=== PATIENT | female | born 1995 | race Caucasian/White ===

== ENCOUNTER 2017-05-07 10:41 | Emergency (ER) | payer OTHER ==
[2017-05-07] MEDS ORDERED: KETOROLAC 30 MG/ML VIAL IM ONE (11:11)
[2017-05-07] MEDS ORDERED: ORPHENADRINE CITRATE 60MG/2ML VIAL IM ONE (11:11)
--- NOTE | 2017-05-07 11:21 | Emergency Department Record ---
History of Present Illness - General Chief Complaint: Back Pain/Injury Stated Complaint: BACK PAIN Time Seen by Provider: 05/07/17 10:55 Source: Patient Mode of Arrival: Ambulatory Limitations: No limitations - History of Present Illness Initial Comments: The patient is here due to a 2 week hx of low back pain. The pain is sharp and stabbing and is worse with any movement or twisting and is much better with rest and lying. The pain intermittently radiates to the L buttock area but does not travel down the legs. There is no leg numbness, weakness, or any bowel or bladder issues. The patient had chronic back pain and has had surgery in the past for similar issues by Dr. Whitley. She denies any CP, fever, chills, and has had a normal LMP. MD Complaint: Back pain Onset/Timin -: Week(s) Similar Symptoms Previously: Yes Radiation: None Severity scale (1-10): 7 Quality: Aching Consistency: Constant Improves With: Other Worsens With: Movement, Sitting upright Context: Unknown Associated Symptoms: Difficulty walking - Related Data Home Medications Medication Instructions Recorded Confirmed Last Taken Norgestimate-Ethinyl Estradiol 1 each PO DAILY 05/07/17 05/07/17 05/06/17 [Norg-Ee 0.18-0.215-0.25/0.025] Sertraline HCl [Zoloft] 100 mg PO DAILY 05/07/17 05/07/17 05/06/17 Previous Rx's Medication Instructions Recorded Cyclobenzaprine HCl [Flexeril] 10 mg PO TID PRN #20 tablet 05/07/17 Naproxen [Naprosyn] 500 mg PO BID #14 tablet. 05/07/17 Allergies Allergy/AdvReac Type Severity Reaction Status Date / Time No Known Drug Allergies Allergy Verified 05/07/17 10:52 Travel Screening - Travel/Exposure Within Last 30 Days Have you traveled within the last 30 days?: No - Travel/Exposure Within Last Year Have you traveled outside the [place] in the last year?: No - Additonal Travel Details Have you been exposed to anyone with a communicable illness?: No - Travel Symptoms Symptom Screening: None Review of Systems Constitutional: Denies: Chills, Fever Eyes: Denies: Eye discharge ENT: Denies: Congestion Respiratory: Denies: Cough, Dyspnea Past Medical History - SOCIAL HISTORY Smoking Status: Never smoker Alcohol Use: Rare Drug Use: None - RESPIRATORY Hx Respiratory Disorders: No - CARDIOVASCULAR Hx Cardio Disorders: No - NEURO Hx Neuro Disorders: No - GI Hx GI Disorders: Yes Hx Reflux: Yes (occassional) - Hx Genitourinary Disorders: No - ENDOCRINE Hx Endocrine Disorders: No - MUSCULOSKELETAL Hx Musculoskeletal Disorders: Yes - PSYCH Hx Psych Problems: Yes Hx Anxiety: Yes - HEMATOLOGY/ONCOLOGY Hx Hematology/Oncology Disorders: No Family Medical History Any Significant Family History?: No Hx Cancer: Grandparents Hx Diabetes: Grandparents Hx Heart Disease: Grandparents Physical Exam - General General Appearance: Alert, Oriented x3, Cooperative, No acute distress - Head Head exam: Atraumatic, Normocephalic, Normal inspection - Eye Eye exam: Normal appearance, PERRL - Neck Neck exam: Normal inspection, Full ROM. negative: Tenderness - Respiratory Respiratory exam: Normal lung sounds bilaterally. negative: Respiratory distress - Cardiovascular Cardiovascular Exam: Regular rate, Normal rhythm, Normal heart sounds - GI/Abdominal GI/Abdominal exam: Soft, Normal bowel sounds. negative: Tenderness - Extremities Extremities exam: Normal inspection, Full ROM, Normal capillary refill, Other ( Neg SLR bilaterally.). negative: Tenderness - Back Back exam: Reports: Normal inspection, Paraspinal tenderness (There is L5-S1 paraspinal lumbar tenderness.). Denies: Vertebral tenderness Course Vital Signs 05/07/17 10:44 Temperature 98.4 F Pulse Rate 97 H Respiratory 18 Rate Blood Pressure 130/89 Pulse Ox 98 - Reevaluation(s) Reevaluation #1: The patient is doing better at this time. Her pain is resolving and she is resting comfortably. 05/07/17 11:52 Reevaluation #2: The patient is doing a good bit better and would like to go home. I did discuss the issues with her and the need for F/U. 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 Rest for 2 days with no lifting or bending and return to the ER for any worsening pain, leg numbness, weakness or any bowel or bladder issues. Prescriptions: Cyclobenzaprine HCl [Flexeril] 10 mg PO TID PRN #20 tablet PRN Reason: Pain Naproxen [Naprosyn] 500 mg PO BID #14 tablet.dr Forms: Patient Portal Access Time of Disposition: 12:06 Quality - Quality Measures Quality Measures: N/A - Blood Pressure Screening View Details: Yes Does Patient Have Any of the Following: No Blood Pressure Classification: Pre-Hypertensive BP Reading Systolic Measurement: 115 Diastolic Measurement: 86 Screening for High Blood Pressure: < Pre-Hypertensive BP, F/U Documented > [ G8950] Pre-Hypertensive Follow-up Interventions: Referral to alternative/primary care provider.
== END 2017-05-07 12:13 | disposition home or self-care (01) ==
LOC: ER 10:41
DX: M54.5 Low back pain (principal)
CPT/HCPCS: 99283 ×2; 96372; J1885; J2360

== ENCOUNTER 2018-05-13 20:05 | Emergency (ER) | payer OTHER ==
--- NOTE | 2018-05-13 21:29 | Emergency Department Record ---
History of Present Illness - General Chief Complaint: Fall Injury Stated Complaint: FALL/VISUAL DISTURBANCE Time Seen by Provider: 05/13/18 20:26 Source: Patient Mode of Arrival: Ambulatory Limitations: No limitations - History of Present Illness Initial Comments: 23 yo female presents after a fall on ice on Sunday. She slipped back hitting her head. She initially felt dazed, some nausea and has had a persistent headache. Today she was ready at school around noon and noted her lateral left eye vision seem blurry for 40 minutes then resolved. Her vision has been back at baseline since then. No confusion, no memory loss. No other weakness, numbness, tingling or neurologic or visual symptoms. She wears glasses. She has no symptoms at this time. 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 Fall Witnessed: Yes, by family Place Fall Occurred: Home Loss of Consciousness: None Prolonged Down Time?: No Symptoms Prior to Fall: None Location: Head, Neck, Buttocks Severity: Mild Severity scale (1-10): 2 Context: Tripped/slipped Associated Symptoms: Denies - [place] Coma Scale Eye Response: (4) Open spontaneously Motor Response: (6) Obeys commands Verbal Response: (5) Oriented [place] Total: 15 - Related Data Allergies Allergy/AdvReac Type Severity Reaction Status Date / Time No Known Drug Allergies Allergy Verified 05/13/18 21:01 Travel Screening - Travel/Exposure Within Last 30 Days Have you traveled within the last 30 days?: No - Travel/Exposure Within Last Year Have you traveled outside the [place] in the last year?: No - Additonal Travel Details Have you been exposed to anyone with a communicable illness?: No - Travel Symptoms Symptom Screening: None Review of Systems Constitutional: Denies: Chills, Fever, Malaise, Weakness Eyes: Reports: As per HPI, Vision change (resolved since about 12:40). Denies: Eye discharge, Eye pain, Photophobia ENT: Denies: Congestion, Throat pain Respiratory: Denies: Cough, Dyspnea Cardiovascular: Denies: Chest pain, Palpitations, Syncope Endocrine: Denies: Fatigue, Polydipsia, Polyuria Gastrointestinal: Denies: Abdominal pain, Diarrhea, Nausea, Vomiting Genitourinary: Denies: Dysuria, Urgency Musculoskeletal: Denies: Arthralgia, Back pain, Joint swelling, Myalgia Skin: Denies: Bruising, Change in color, Rash Neurological: Reports: Headache. Denies: Abnormal gait, Confusion, Numbness, Paresthesias, Seizure, Tingling, Tremors, Vertigo, Weakness Psychiatric: Denies: Anxiety Hematological/Lymphatic: Denies: Easy bleeding, Easy bruising, Swollen glands Past Medical History - SOCIAL HISTORY Smoking Status: Never smoker Alcohol Use: Rare Drug Use: None - RESPIRATORY Hx Respiratory Disorders: No - CARDIOVASCULAR Hx Cardio Disorders: No - NEURO Hx Neuro Disorders: No - GI Hx GI Disorders: Yes Hx Reflux: Yes (occassional) - Hx Genitourinary Disorders: No - ENDOCRINE Hx Endocrine Disorders: No - MUSCULOSKELETAL Hx Musculoskeletal Disorders: Yes - PSYCH Hx Psych Problems: Yes Hx Anxiety: Yes - HEMATOLOGY/ONCOLOGY Hx Hematology/Oncology Disorders: No Family Medical History Any Significant Family History?: No Hx Cancer: Grandparents Hx Diabetes: Grandparents Hx Heart Disease: Grandparents Physical Exam - General General Appearance: Alert, Oriented x3, Cooperative, No acute distress Limitations: No limitations - Head Head exam: Atraumatic, Normocephalic, Normal inspection Head exam detail: negative: Abrasion, Contusion, Hematoma - Eye Eye exam: Normal appearance, PERRL, EOMI, Other (Fundi appear normal without obvious hemorrhage, retinal abnormality, the disc is shape on the left). negative: Conjunctival injection, Nystagmus, Periorbital swelling, Periorbital tenderness, Scleral icterus Pupils: Normal accommodation, Other (Normal visual confrontation testing with counting and movement in all quadrants, no diplopia, no quadrant visual defect) . negative: Irregular, Miosis, Unequal Visual acuity (L) = 20/: 30 Visual acuity (R) = 20/: 30 With correction: Yes - ENT ENT exam: Normal exam, Mucous membranes moist Ear exam: Normal external inspection Nasal Exam: Normal inspection Mouth exam: Normal external inspection - Neck Neck exam: Normal inspection - Respiratory Respiratory exam: Normal lung sounds bilaterally. negative: Respiratory distress - Cardiovascular Cardiovascular Exam: Regular rate, Normal rhythm, Normal heart sounds - GI/Abdominal GI/Abdominal exam: Soft. negative: Tenderness - Rectal Rectal exam: Deferred - exam: Deferred - Extremities Extremities exam: Normal inspection. negative: Full ROM, Joint swelling, Normal capillary refill, Pedal edema, Tenderness - Back Back exam: Reports: Full ROM. Denies: CVA tenderness (R), CVA tenderness (L), Tenderness - Neurological Neurological exam: Alert, CN II-XII intact, Normal gait, Oriented X3, Reflexes normal. negative: Abnormal gait, Altered, Motor sensory deficit - Psychiatric Psychiatric exam: negative: Agitated, Anxious, Normal affect, Normal mood - Skin Skin exam: Dry, Intact, Normal color, Warm Course Vital Signs 05/13/18 20:49 Temperature 98.4 F Pulse Rate [ 82 Pulse Ox Probe] Respiratory 20 Rate Blood Pressure 150/96 [Left Arm] Pulse Ox 100 - Reevaluation(s) Reevaluation #1: Given the transient vision change and mild persistent headache HCT was ordered 05/13/18 21:29 05/13/18 21:51 The HCT is negative Her examination is negative at this time We discussed reasons for return, follow up with her eye doctor the next available appointment Disposition Disposition: Discharge Clinical Impression: Concussion, Transient vision disturbance of left eye Disposition: Home, Self-Care Condition: (1) Good Instructions: Concussion (ED) Additional Instructions: Call your eye doctor for the next available follow up appointment tomorrow Return to the ER for a recheck if worse, any new concerns or questions Review this ER visit and the tests performed with your family doctor Forms: Patient Portal Access Time of Disposition: 21:52 Quality - Quality Measures Quality Measures: N/A, Blunt Head Trauma (>2yr) - [place] Coma Scale Eye Response: (4) Open spontaneously Motor Response: (6) Obeys commands Verbal Response: (5) Oriented [place] Total: 15 - Blunt Head Trauma - Adult Quality Measure: Measure #415: Utilization of CT for Minor Blunt Head Trauma ICD10 Codes Entered: Yes Was CT ordered: Yes Does Patient Have Any of the Following: No Exclusions Patient Presented Within 24 Hours of Injury: No [place] Score: [address] for Minor Blunt Head Trauma: Not Eligible For Measure Additional Inclusion Criteria: More than 24hrs (OR) GCS not 15 (OR) CT not ordered. Not Eligible Reason: Injury Greater Than 24 Hours Ago - Blood Pressure Screening Does Patient Have Any of the Following: No Blood Pressure Classification: Pre-Hypertensive BP Reading Systolic Measurement: 128 Diastolic Measurement: 78 Screening for High Blood Pressure: < Pre-Hypertensive BP, F/U Documented > [ G8950] Pre-Hypertensive Follow-up Interventions: Referral to alternative/primary care provider.
--- NOTE | 2018-05-15 13:21 | CT SCAN REPORT ---
EXAM: CT OF THE HEAD WITHOUT CONTRAST HISTORY: BLURRED VISION IN LEFT EYE LASTING FORTY-FIVE MINUTES TWO DAYS POST HEAD TRAUMA. TECHNIQUE: Routine noncontrast CT examination of the head was obtained. Comparison: CT of the head without contrast dated 10/15/14. FINDINGS: The ventricles and subarachnoid spaces remain normal in size. No area of abnormally increased or decreased attenuation is noted throughout the brain substance. No abnormal extraaxial fluid collection is seen nor is there skull fracture identified. There is mild mucosal thickening in the maxillary sinuses, several bilateral ethmoid air cells, and the left sphenoid sinus. The visualized paranasal sinuses and mastoid air cells are otherwise clear. The orbits as visualized are within the limits of normal. 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 IMPRESSION: 1. NO ACUTE INTRACRANIAL ABNORMALITY NOR SKULL FRACTURE IDENTIFIED WITHOUT CHANGE IN APPEARANCE OF THE BRAIN SINCE 10/15/14. 2. MILD MUCOSAL THICKENING WITHIN SEVERAL PARANASAL SINUSES. 3. NOT MENTIONED ABOVE IS APPARENT MILD SOFT TISSUE SWELLING IN THE POSTERIOR PARIETAL SCALP NEAR THE MIDLINE. JOB NUMBER: [id number] [facility]
== END 2018-05-13 22:11 | disposition home or self-care (01) ==
LOC: ER 20:05
DX: S06.0X0A Concussion without loss of consciousness, initial encounter (principal); H53.8 Other visual disturbances; R11.0 Nausea; R51 Headache; W00.0XXA Fall on same level due to ice and snow, initial encounter; Y92.009 Unspecified place in unspecified non-institutional (private) residence as the place of occurrence of the external cause
CPT/HCPCS: 70450; 99283

== ENCOUNTER 2018-09-11 19:30 | Emergency (ER) | payer OTHER ==
[2018-09-11] MEDS ORDERED: MAGNESIUM HYDROXIDE/AL HYDROX 30 ML, LIDOCAINE VISC 2% 15ML 15 ML PO ONE ×2 (19:49)
--- NOTE | 2018-09-11 19:53 | Emergency Department Record ---
History of Present Illness - General Chief Complaint: Abdominal Pain Stated Complaint: ABDOMINAL PAIN Time Seen by Provider: 09/11/18 19:43 Source: Patient Mode of Arrival: Ambulatory Limitations: No limitations - History of Present Illness Initial Comments: 23 yo female presents to ED for evaluation of epigastric abdominal pain that began approximately 6 days ago. Patient denies nausea/vomiting, does report some loose stools however. Patient denies health problems at her baseline, denies previous abdominal surgery. Patient has not taken anything for her symptoms prior to arrival. MD Complaint: Abdominal pain Onset/Timin -: Days(s) Location: Epigastric Radiation: None Migration to: No migration Severity: Moderate Quality: Aching Consistency: Constant Improves With: Nothing Worsens With: Nothing Associated Symptoms: Diarrhea - Related Data Previous Rx's Medication Instructions Recorded Famotidine [Pepcid] 40 mg PO DAILY #30 tablet 09/11/18 Sucralfate [Carafate] 1 g PO QID #60 udc 09/11/18 Allergies Allergy/AdvReac Type Severity Reaction Status Date / Time No Known Drug Allergies Allergy Verified 05/13/18 21:01 Review of Systems Constitutional: Denies: Chills, Fever, Malaise, Night sweats Eyes: Denies: Eye discharge, Eye pain ENT: Denies: Congestion, Ear pain, Epistaxis Respiratory: Denies: Cough, Dyspnea Cardiovascular: Denies: Chest pain, Dyspnea on exertion Endocrine: Denies: Fatigue, Heat or cold intolerance Gastrointestinal: Reports: Abdominal pain. Denies: Nausea, Vomiting Genitourinary: Denies: Incontinence, Retention Musculoskeletal: Denies: Arthralgia, Back pain Skin: Denies: Bruising, Change in color Neurological: Denies: Abnormal gait, Confusion, Headache, Seizure Psychiatric: Denies: Anxiety Hematological/Lymphatic: Denies: Anemia, Blood Clots Past Medical History - SOCIAL HISTORY Smoking Status: Never smoker Drug Use: None - RESPIRATORY Hx Respiratory Disorders: No - CARDIOVASCULAR Hx Cardio Disorders: No - NEURO Hx Neuro Disorders: No - GI Hx GI Disorders: Yes Hx Reflux: Yes (occassional) - Hx Genitourinary Disorders: No - ENDOCRINE Hx Endocrine Disorders: No - MUSCULOSKELETAL Hx Musculoskeletal Disorders: Yes - PSYCH Hx Psych Problems: Yes Hx Anxiety: Yes - HEMATOLOGY/ONCOLOGY Hx Hematology/Oncology Disorders: No Family Medical History Hx Cancer: Grandparents Hx Diabetes: Grandparents Hx Heart Disease: Grandparents Physical Exam - General General Appearance: Alert, Oriented x3, Cooperative, Mild distress Limitations: No limitations - Head Head exam: Atraumatic, Normocephalic, Normal inspection Head exam detail: negative: Abrasion, Contusion, Sue's sign, General tenderness, Hematoma, Laceration - Eye Eye exam: Normal appearance. negative: Conjunctival injection, Periorbital swelling, Periorbital tenderness, Scleral icterus - ENT Ear exam: negative: Auricular hematoma, Auricular trauma Nasal Exam: negative: Active bleeding, Discharge, Dried blood, Foreign body Mouth exam: negative: Drooling, Laceration, Muffled voice, Tongue elevation - Neck Neck exam: Normal inspection. negative: Meningismus, Tenderness - Respiratory Respiratory exam: Normal lung sounds bilaterally. negative: Rales, Respiratory distress, Rhonchi, Stridor - Cardiovascular Cardiovascular Exam: Regular rate, Normal rhythm, Normal heart sounds - GI/Abdominal GI/Abdominal exam: Soft, Tenderness (Mild TTP epigastric region on examination, no rebound/guarding present, no pain to the lower quadrants on examination.). negative: Rebound, Rigid - Rectal Rectal exam: Deferred - exam: Deferred - Extremities Extremities exam: Normal inspection. negative: Pedal edema, Tenderness - Back Back exam: Denies: CVA tenderness (R), CVA tenderness (L) - Neurological Neurological exam: Alert, Normal gait, Oriented X3 - Psychiatric Psychiatric exam: Normal affect, Normal mood - Skin Skin exam: Normal color. negative: Abrasion Type of lesion: negative: abrasion Course Vital Signs 09/11/18 19:45 Temperature 98.3 F Pulse Rate [ 93 H Pulse Ox Probe] Respiratory 20 Rate Blood Pressure 123/83 [Left Arm] Pulse Ox 97 - Reevaluation(s) Reevaluation #1: 09/11/18 20:41 Laboratory studies were reviewed and are grossly unremarkable for an acute process. UA pending at this time. Reevaluation #2: 09/11/18 20:56 Patient was reassessed at this time, reports that she is feeling better. UA sent to lab. Reevaluation #3: 09/11/18 21:02 UA reviewed and appears unremarkable. Patient was updated on all results, discussed bringing the patient back for US in the morning, patient declined stating she will follow-up with her PCP to have the examination ordered. Patient was instructed to return to the ED if her symptoms worsen or if you have any concerns. Will treat for possible gastritis/PUD. Medical Decision Making - Lab Data Result diagrams: 09/11/18 20:11 09/11/18 20:10 Disposition Disposition: Discharge Clinical Impression: Gastritis Qualifiers: Gastritis type: unspecified gastritis Chronicity: acute Gastritis bleeding: without bleeding Qualified Code(s): K29.00 - Acute gastritis without bleeding Disposition: Home, Self-Care Condition: (2) Stable Instructions: Gastritis (ED) Additional Instructions: Return to ED if your symptoms worsen or if you have any concerns. Pepcid, Carafate as directed. Follow-up with your family doctor in 3-5 days as directed. Prescriptions: Sucralfate [Carafate] 1 g PO QID #60 udc Famotidine [Pepcid] 40 mg PO DAILY #30 tablet Forms: Patient Portal Access Time of Disposition: 21:06 Quality - Quality Measures Quality Measures: N/A - Blood Pressure Screening Does Patient Have Any of the Following: No Blood Pressure Classification: Pre-Hypertensive BP Reading Systolic Measurement: 123 Diastolic Measurement: 75 Screening for High Blood Pressure: < Pre-Hypertensive BP, F/U Documented > [G8950] Pre-Hypertensive Follow-up Interventions: Referral to alternative/primary care provider.
[2018-09-11] MEDS ORDERED: 0.9 % SODIUM CHLORIDE 1000ML 1,000 ML IV SCH (20:00)
[2018-09-11 20:18] LABS: ABSOLUTE NEUTROPHIL COUNT 5.16; BASO % 0.5 % (0-6); EOS % 2.9 % (0-6); GRAN % 60.6 % (47-80); HEMATOCRIT 37.8 % (35.0-47.0); HEMOGLOBIN 13.1 gm/dl (11.6-16.0); LYMPH % 30.9 % (16-45); MEAN CELL VOLUME 94.3 fl (81-97); MEAN CORPUSCULAR HEMOGLOBIN 32.7 pg (27-33); MEAN CORPUSCULAR HGB CONC 34.7 g/dl (32-36); MEAN PLATELET VOLUME 9.9 fl (7.4-10.4); MONO % 5.1 % (0-9); PLATELET COUNT 280 K/uL (130-400); RED BLOOD COUNT 4.01 M/uL (3.80-5.40); RED CELL DISTRIBUTION WIDTH 12.4 % (11.5-14.5); WHITE BLOOD COUNT W/O DIFF 8.5 K/uL (4.2-12.2)
[2018-09-11 20:26] LABS: BLOOD UREA NITROGEN 11 mg/dL (6-20); CREATININE 0.6 mg/dL (0.5-0.9); EST GLOMERULAR FILTRATION RATE > 60 mL/min
[2018-09-11 20:27] LABS: LIPASE 34 U/L (13-60); TOTAL PROTEIN 7.1 g/dL (6.6-8.7)
[2018-09-11 20:29] LABS: GLUCOSE,RANDOM 103 mg/dL (74-109)
[2018-09-11 20:32] LABS: ALB/GLOB RATIO 1.3 (1.1-1.8); ALKALINE PHOSPHATASE 66 U/L (35-104); ALT/SGPT 19 U/L (<33); AST/SGOT 23 U/L (10.0-35.0)
[2018-09-11 20:55] LABS: URINE APPEARANCE CLEAR; URINE BILIRUBIN NEGATIVE (NEGATIVE); URINE BLOOD TRACE-I (NEGATIVE); URINE COLOR YELLOW; URINE GLUCOSE (UA) NEGATIVE (NEGATIVE); URINE KETONE NEGATIVE (NEGATIVE); URINE LEUKOCYTE ESTERASE TRACE (NEGATIVE); URINE NITRITE NEGATIVE (NEGATIVE); URINE PROTEIN NEGATIVE (NEGATIVE); URINE UROBILINOGEN 0.2 E.U./dL (0.20 - 1.00)
[2018-09-11 20:58] LABS: HCG,QUALITATIVE URINE NEGATIVE (NEGATIVE)
[2018-09-11 21:00] LABS: URINE BACTERIA NONE SEEN; URINE EPITHELIAL CELLS 0 - 2 (FEW); URINE RBC 0 - 2 (NONE SEEN); URINE WBC 0 - 2 (0-2/hpf)
== END 2018-09-11 21:14 | disposition home or self-care (01) ==
LOC: ER 19:30
DX: K29.00 Acute gastritis without bleeding (principal); R10.31 Right lower quadrant pain; R19.7 Diarrhea, unspecified
CPT/HCPCS: 80053; 81001; 81025; 83690; 85025; 96360; 99284; J7030